=== PATIENT | female | born 1990 | race Caucasian/White ===

== ENCOUNTER 2017-11-22 20:50 | Emergency (ER) | payer MEDICAID ==
[~2017-11-22] VITALS: Ht 157.5 cm; Wt 40.4 kg
[2017-11-22 21:00] VITALS: BP 136/90
--- NOTE | 2017-11-22 21:05 | NUR ---
PATIENT AMBULATED TO ER BED 6.
--- NOTE | 2017-11-22 21:05 | NUR ---
PT C/O COUGH X5 DAYS. PT REPORTS PHLEGM PRODUCTION WITH BLOOD. DENIES N/V/D; SKIN IS PINK/WARM/DRY; AAOX4 WITH EVEN AND STEADY GAIT; LUNGS CLEAR BL; HR EVEN AND REGULAR; PT DENIES ANY FEVER, SOB, AT THIS TIME; PATIENT STATES PAIN OF 5/10 AT THIS TIME; VSS; PATIENT POSITIONED FOR COMFORT; HOB ELEVATED; BEDRAILS UP X2; BED DOWN. ER MD MADE AWARE OF PT STATUS.
[2017-11-22 21:50] VITALS: BP 115/72
--- NOTE | 2017-11-22 21:50 | NUR ---
Patient discharged with v/s stable. Written and verbal after care instructions given and explained. Patient alert, oriented and verbalized understanding of instructions. Ambulatory with steady gait. All questions addressed prior to discharge. ID band removed. Patient advised to follow up with PMD. Rx of PROMETHAZINE DM, ZITHROMAX given. Patient educated on indication of medication including possible reaction and side effects. Opportunity to ask questions provided and answered.
== END 2017-11-22 21:50 | disposition home or self-care (01) ==
LOC: MED 20:50
DX: J40 Bronchitis, not specified as acute or chronic (principal); Z90.49 Acquired absence of other specified parts of digestive tract
CPT/HCPCS: 71046; 99284

== ENCOUNTER 2018-06-03 11:37 | Emergency (ER) | payer MEDICAID ==
[~2018-06-03] VITALS: Ht 157.5 cm; Wt 44.0 kg
[2018-06-03 11:43] VITALS: BP 131/82
--- NOTE | 2018-06-03 11:48 | NUR ---
PATIENT AMBULATED TO BED 3.
--- NOTE | 2018-06-03 12:03 | NUR ---
28/F BIB FAMILY C/O BACK OF HEAD PAIN X EARLIER TODAY, DENIES N/V/D OR BLURRY VISION. PATIENT STATES PAIN OF 7/10 AT THIS TIME.PATIENT POSITIONED FOR COMFORT; HOB ELEVATED; BEDRAILS UP X1; BED DOWN. ER MD MADE AWARE OF PT STATUS.
[2018-06-03] MEDS ORDERED: KETOROLAC 60 MG/2 ML VIAL IM ONE (12:10)
--- NOTE | 2018-06-03 12:22 | NUR ---
IM MEDS GIVEN-NADR AT THIS TIME
[2018-06-03 12:31] VITALS: BP 110/60
--- NOTE | 2018-06-03 12:31 | NUR ---
Patient discharged with v/s stable. Written and verbal after care instructions given and explained. Patient alert, oriented and verbalized understanding of instructions. Ambulatory with steady gait. All questions addressed prior to discharge. ID band removed. Patient advised to follow up with PMD. Rx of BACLOFEN given. Patient educated on indication of medication including possible reaction and side effects. Opportunity to ask questions provided and answered.
== END 2018-06-03 12:31 | disposition home or self-care (01) ==
LOC: MED 11:37
DX: M43.6 Torticollis (principal); M62.838 Other muscle spasm
CPT/HCPCS: 81002; 81025; 96372; 99283; J1885

== ENCOUNTER 2019-02-14 11:21 | Emergency (ER) | payer MEDICAID ==
[~2019-02-14] VITALS: Ht 157.5 cm; Wt 44.6 kg
[2019-02-14 11:27] VITALS: BP 121/79
[2019-02-14 12:11] LABS: BASOPHILS % (AUTO) 0.3 % (0.0-2.0); EOSINOPHILS % (AUTO) 0.5 % (0.0-4.0); HEMATOCRIT 42.4 % (36-48); HEMOGLOBIN 14.1 g/dL (12.0-16.0); LYMPHOCYTES # (AUTO) 1.4 K/uL (2.5-16.5); MEAN CORPUSCULAR HEMOGLOBIN 28 pg (27-31); MEAN CORPUSCULAR HGB CONC 33 g/dL (33-37); MEAN CORPUSCULAR VOLUME 84.7 fL (80-94); MONOCYTES # (AUTO) 0.6 K/uL (0.8-1.0); MONOCYTES % (AUTO) 9.2 % (1.7-9.3); NEUTROPHILS # (AUTO) 4.6 K/uL (1.8-7.7); PLATELET COUNT (AUTO) 155 K/uL (140-450); WHITE BLOOD COUNT (AUTO) 6.7 K/uL (4.8-10.8)
[2019-02-14 12:22] LABS: ALBUMIN 3.8 g/dL (3.4-5.0); ANION GAP 12.3 (8-16); CARBON DIOXIDE 27.4 mmol/L (21-32); CREATININE 1.3 mg/dL (0.6-1.3); POTASSIUM 4.7 mmol/L (3.5-5.1); TOTAL BILIRUBIN 0.2 mg/dL (0.0-1.0)
--- NOTE | 2019-02-14 14:32 | NUR ---
PT TAKEN TO BED 7.
--- NOTE | 2019-02-14 14:51 | NUR ---
Dr. Parsons is evaluating the patient at bedside.
[2019-02-14] MEDS ORDERED: ONDANSETRON 4 MG/2 ML VIAL IVP ONE (14:55)
[2019-02-14] MEDS ORDERED: KETOROLAC 30 MG/ML VIAL IVP ONE (14:55)
[2019-02-14] MEDS: NACL 0.9% 1,000 ML IV SCH ×2 (15:16→15:45)
--- NOTE | 2019-02-14 15:22 | NUR ---
BIB SELF C/O UPPER ABD PAIN X 1 DAY, DIARRHEA, NAUSEA. LAST BM WAS AT 1100. RATES PAIN 10/19. REPORTS A SUDDEN ONSET OF SYMPTOMS YESTERDAY MORNING AND PAIN HAS NOT BEEN RELIEVED SINCE. NO SOB/ NO CHEST PAIN. BOWEL SOUNDS ACTIVE IN ALL QUADRANTS. ABD FLAT. NO PMH NKA
[2019-02-14 18:03] VITALS: BP 135/72
--- NOTE | 2019-02-14 18:05 | NUR ---
Patient discharged with v/s stable. Written and verbal after care instructions given and explained. Patient alert, oriented and verbalized understanding of instructions. Ambulatory with steady gait. All questions addressed prior to discharge. ID band removed. Patient advised to follow up with PMD. Rx of MOTRIN, ZOFRAN, IMMODIUM given. Patient educated on indication of medication including possible reaction and side effects. Opportunity to ask questions provided and answered.
[2019-02-14 19:57] LABS: APPEARANCE,URINE CLEAR (CLEAR); BILIRUBIN,URINE NEGATIVE (NEGATIVE); BLOOD, URINE 2+ (NEGATIVE); COLOR,URINE YELLOW (YELLOW); LEUKOCYTE ESTERASE ,URINE NEGATIVE (NEGATIVE); NITRITE, URINE NEGATIVE (NEGATIVE); PH,URINE 6.5 (5.0-9.0); UGLUCOSE NEGATIVE (NEGATIVE)
[2019-02-14 20:16] LABS: RBC,URINE 0-5 /HPF (0-5); WBC,URINE NONE SEEN /HPF (0-5)
--- NOTE | 2019-02-17 08:34 | NUR ---
Late entry. Confirmed with RN that 0.9 NS IV completed at 164
== END 2019-02-14 18:05 | disposition home or self-care (01) ==
LOC: MED 11:21
DX: R10.13 Epigastric pain (principal); R11.0 Nausea; R19.7 Diarrhea, unspecified; Z90.49 Acquired absence of other specified parts of digestive tract
CPT/HCPCS: 36415; 74177; 80053; 81001; 83690; 84703; 85025; 96374; 96375; 99284; J1885; J2405; Q9967; J7030

== ENCOUNTER 2022-02-11 01:30 | Emergency (ER) | payer MEDICAID ==
--- NOTE | 2022-02-11 01:43 | NUR ---
called for patient. no answer at this time.
--- NOTE | 2022-02-11 01:43 | NUR ---
Arina reyes in ED - 02/11/22 at 0207 by ERA PATIENT LEFT WITHOUT BEING SEEN BY DR. ANAYA. NO FURTHER CARE PROVIDED FOR PATIENT.
--- NOTE | 2022-02-11 02:06 | NUR ---
PATIENT LEFT WITHOUT BEING SEEN BY DR. ANAYA. NO FURTHER CARE PROVIDED FOR PATIENT.
--- NOTE | 2022-02-11 02:06 | NUR ---
called for pt and no answer
== END 2022-02-11 01:43 | disposition left against medical advice (07) ==
LOC: MED 01:30
DX: R10.9 Unspecified abdominal pain (principal); Z53.21 Procedure and treatment not carried out due to patient leaving prior to being seen by health care provider

== ENCOUNTER 2022-07-26 22:40 | Emergency (ER) | payer MEDICAID ==
[~2022-07-26] VITALS: Ht 157.5 cm; Wt 49.9 kg
[2022-07-26 22:55] VITALS: BP 114/80
--- NOTE | 2022-07-26 22:58 | NUR ---
TO LOBBY A/W BED AMBULATORY
--- NOTE | 2022-07-26 23:51 | NUR ---
PT TO BED #6
[2022-07-27] MEDS ORDERED: ONDANSETRON 4 MG/2 ML VIAL IVP ONE (00:05)
[2022-07-27] MEDS ORDERED: NACL 0.9% 1,000 ML IV ONE (00:05)
[2022-07-27] MEDS ORDERED: KETOROLAC 15 MG/ML VIAL IVP ONE (00:05)
[2022-07-27 00:21] LABS: APPEARANCE,URINE CLEAR (CLEAR); BILIRUBIN,URINE NEGATIVE (NEGATIVE); BLOOD, URINE NEGATIVE (NEGATIVE); COLOR,URINE YELLOW (YELLOW); LEUKOCYTE ESTERASE ,URINE NEGATIVE (NEGATIVE); NITRITE, URINE NEGATIVE (NEGATIVE); PH,URINE 6.5 (5.0-9.0); UGLUCOSE NEGATIVE (NEGATIVE)
[2022-07-27 00:24] LABS: BASOPHILS % (AUTO) 0.6 % (0.0-2.0); EOSINOPHILS # (AUTO) 0.1 K/uL (0-0.4); EOSINOPHILS % (AUTO) 1.7 % (0.0-4.0); HEMATOCRIT 39.7 % (36-48); HEMOGLOBIN 13.4 g/dL (12.0-16.0); LYMPHOCYTES # (AUTO) 2.8 K/uL (2.5-16.5); LYMPHOCYTES % (AUTO) 35.3 % (20.5-51.1); MEAN CORPUSCULAR HEMOGLOBIN 28 pg (27-31); MEAN CORPUSCULAR HGB CONC 34 g/dL (33-37); MEAN CORPUSCULAR VOLUME 82.6 fL (80-94); MONOCYTES # (AUTO) 0.5 K/uL (0.8-1.0); MONOCYTES % (AUTO) 6.9 % (1.7-9.3); NEUTROPHILS # (AUTO) 4.4 K/uL (1.8-7.7); NEUTROPHILS % (AUTO) 55.5 % (42.2-75.2); PLATELET COUNT (AUTO) 229 K/uL (140-450); RED BLOOD CELL COUNT(AUTO) 4.81 MIL/uL (4.20-5.40); RED CELL DISTRIBUTION WIDTH 12.8 % (11.6-13.7); WHITE BLOOD COUNT (AUTO) 7.9 K/uL (4.8-10.8)
[2022-07-27 00:41] LABS: ALBUMIN 3.9 g/dL (3.4-5.0); ANION GAP 10.3 (8-16); CARBON DIOXIDE 31.8 mmol/L (21-32); CREATININE 0.8 mg/dL (0.6-1.3); POTASSIUM 4.1 mmol/L (3.5-5.1); TOTAL BILIRUBIN 0.2 mg/dL (0.0-1.0)
[2022-07-27] MEDS ORDERED: MAG-27 PO (01:25)
[2022-07-27] MEDS ORDERED: ONDA-188 PO (01:25)
[2022-07-27 01:33] VITALS: BP 114/80
--- NOTE | 2022-07-27 01:33 | NUR ---
Patient discharged with v/s stable. Written and verbal after care instructions given and explained. Patient alert, oriented and verbalized understanding of instructions. Ambulatory with steady gait. All questions addressed prior to discharge. ID band removed. Patient advised to follow up with PMD. Rx of JEREMY FLYNN given. Patient educated on indication of medication including possible reaction and side effects. Opportunity to ask questions provided and answered.
== END 2022-07-27 01:33 | disposition home or self-care (01) ==
LOC: MED 22:40
DX: R10.13 Epigastric pain (principal); R11.2 Nausea with vomiting, unspecified; R42 Dizziness and giddiness; Z72.89 Other problems related to lifestyle; Z90.49 Acquired absence of other specified parts of digestive tract
CPT/HCPCS: 36415; 80053; 81003; 81025; 83690; 85025; 96361; 96374; 96375; 99284; J7030

== ENCOUNTER 2022-12-12 09:49 | Emergency (ER) | payer MEDICAID ==
[~2022-12-12] VITALS: Ht 162.6 cm; Wt 63.5 kg
[~2022-12-12 09:49] MED LIST: HYD1C TP; MAG-27 PO; NAPR-54 PO; ONDA-188 PO
[2022-12-12 10:06] VITALS: BP 124/85; PULSE 87; RESP 18; TEMP 98.6; O2SAT 98
[2022-12-12 12:06] LABS: FLU A ANTIGEN negative (NEGATIVE); FLU B ANTIGEN NEGATIVE (NEGATIVE)
[2022-12-12] MEDS ORDERED: BENZ200C4 PO (12:30)
[2022-12-12] MEDS ORDERED: ALBU0.0912 IH (12:30)
== END 2022-12-12 13:06 | disposition home or self-care (01) ==
LOC: MED 09:49
DX: J20.9 Acute bronchitis, unspecified (principal); Z20.822 Contact with and (suspected) exposure to COVID-19; Z79.899 Other long term (current) drug therapy
CPT/HCPCS: 71045; 99284

== ENCOUNTER 2022-12-13 20:20 | Emergency (ER) | payer MEDICAID ==
[~2022-12-13] VITALS: Ht 157.5 cm; Wt 54.4 kg
[~2022-12-13 20:20] MED LIST changes: +ALBU0.0912 IH; +BENZ200C4 PO
[2022-12-13 20:25] VITALS: BP 140/80; PULSE 122; RESP 22; TEMP 100.9; O2SAT 95
[2022-12-13] MEDS ORDERED: ACETAMINOPHEN 325 MG TAB PO ONE (20:40)
[2022-12-13 20:50] VITALS: O2SAT 98
[2022-12-13] MEDS ORDERED: NACL 0.9% 1,000 ML IV ONE ×2 (21:00)
[2022-12-13 21:27] LABS: BASOPHILS % (AUTO) 0.3 % (0.0-2.0); EOSINOPHILS % (AUTO) 0.3 % (0.0-4.0); HEMATOCRIT 40.7 % (36-48); HEMOGLOBIN 13.9 g/dL (12.0-16.0); LYMPHOCYTES # (AUTO) 0.9 K/uL (2.5-16.5); LYMPHOCYTES % (AUTO) 16.8 % (20.5-51.1); MEAN CORPUSCULAR HEMOGLOBIN 28 pg (27-31); MEAN CORPUSCULAR HGB CONC 34 g/dL (33-37); MEAN CORPUSCULAR VOLUME 81.7 fL (80-94); MONOCYTES # (AUTO) 0.3 K/uL (0.8-1.0); MONOCYTES % (AUTO) 5.6 % (1.7-9.3); NEUTROPHILS # (AUTO) 4.1 K/uL (1.8-7.7); PLATELET COUNT (AUTO) 165 K/uL (140-450); RED BLOOD CELL COUNT(AUTO) 4.99 MIL/uL (4.20-5.40); RED CELL DISTRIBUTION WIDTH 13.2 % (11.6-13.7); WHITE BLOOD COUNT (AUTO) 5.3 K/uL (4.8-10.8)
[2022-12-13 21:38] LABS: ALBUMIN 3.9 g/dL (3.4-5.0); ANION GAP 13.2 (8-16); CALCIUM 8.6 mg/dL (8.5-10.1); CARBON DIOXIDE 25.5 mmol/L (21-32); CREATININE 0.9 mg/dL (0.6-1.3); POTASSIUM 3.7 mmol/L (3.5-5.1); TOTAL BILIRUBIN 0.3 mg/dL (0.0-1.0); TOTAL PROTEIN, SERUM 7.9 g/dL (6.4-8.2)
[2022-12-13 21:43] LABS: LACTIC ACID 1.9 mmol/L (0.4-2.0)
[2022-12-13 22:22] LABS: APPEARANCE,URINE CLEAR (CLEAR); BILIRUBIN,URINE NEGATIVE (NEGATIVE); BLOOD, URINE 1+ (NEGATIVE); COLOR,URINE YELLOW (YELLOW); LEUKOCYTE ESTERASE ,URINE NEGATIVE (NEGATIVE); NITRITE, URINE NEGATIVE (NEGATIVE); PROTEIN,URINE NEGATIVE (NEGATIVE); UGLUCOSE NEGATIVE (NEGATIVE); UROBILINOGEN,URINE 0.2 EU/dL (0.2 - 1)
[2022-12-13 22:34] LABS: BACTERIA,URINE FEW /HPF (None Seen); MUCUS,URINE 1+ /LPF (None Seen); RBC,URINE 0-5 /HPF (0-5); SQUAMOUS EPITHELIAL CELL,UR 0-3 (FEW) /LPF (0-3 (FEW)); TRICHOMONAS,URINE None Seen /HPF (None Seen); WBC,URINE 0-5 /HPF (0-5); YEAST,URINE None Seen /HPF (None Seen)
[2022-12-13] MEDS ORDERED: cefTRIAXone 1,000 MG VIAL ONE (23:27)
[2022-12-14 00:12] VITALS: O2SAT 98
[2022-12-14] MEDS ORDERED: guaiFENesin DM 200/20 MG-10 ML 10 ML UDC PO ONE (02:45)
[2022-12-14 03:03] VITALS: O2SAT 99
[2022-12-14 05:02] VITALS: O2SAT 99
[2022-12-14] MEDS ORDERED: AZIT250T4 PO (05:49)
[2022-12-14] MEDS ORDERED: ROB PO (05:49)
[2022-12-14] MEDS ORDERED: ACET-2619 PO (05:49)
[2022-12-14 06:04] VITALS: BP 109/72; PULSE 99; RESP 14; TEMP 98.9; O2SAT 100
== END 2022-12-14 06:04 | disposition home or self-care (01) ==
LOC: MED 20:20
DX: A41.9 Sepsis, unspecified organism (principal); Z79.899 Other long term (current) drug therapy
CPT/HCPCS: 36415; 71045; 71275; 80053; 81001; 83605; 84484; 85025; 85379; 87040; 87086; 93005; 96361; 96365; 99291; J0696; Q9967

== ENCOUNTER 2023-06-10 09:17 | Emergency (ER) | payer SELFPAY ==
[~2023-06-10] VITALS: Ht 157.5 cm; Wt 55.8 kg
[~2023-06-10 09:17] MED LIST changes: +ACET-2619 PO; +AZIT250T4 PO; +NAPR-337 PO; -NAPR-54 PO; +ROB PO
[2023-06-10 09:19] VITALS: BP 122/79; PULSE 74; RESP 16; TEMP 97.7; O2SAT 98
[2023-06-10 10:06] LABS: BASOPHILS # (AUTO) 0.1 K/uL (0.00-0.22); BASOPHILS % (AUTO) 0.7 % (0.0-2.0); EOSINOPHILS # (AUTO) 0.2 K/uL (0-0.4); EOSINOPHILS % (AUTO) 2.3 % (0.0-4.0); HEMATOCRIT 41.7 % (36-48); HEMOGLOBIN 14.3 g/dL (12.0-16.0); LYMPHOCYTES # (AUTO) 2.6 K/uL (2.5-16.5); LYMPHOCYTES % (AUTO) 33.9 % (20.5-51.1); MEAN CORPUSCULAR HEMOGLOBIN 28 pg (27-31); MEAN CORPUSCULAR HGB CONC 34 g/dL (33-37); MEAN CORPUSCULAR VOLUME 82.5 fL (80-94); MONOCYTES # (AUTO) 0.5 K/uL (0.8-1.0); NEUTROPHILS # (AUTO) 4.3 K/uL (1.8-7.7); NEUTROPHILS % (AUTO) 57.1 % (42.2-75.2); PLATELET COUNT (AUTO) 209 K/uL (140-450); RED BLOOD CELL COUNT(AUTO) 5.05 MIL/uL (4.20-5.40); RED CELL DISTRIBUTION WIDTH 13.5 % (11.6-13.7); WHITE BLOOD COUNT (AUTO) 7.6 K/uL (4.8-10.8)
[2023-06-10] MEDS: KETOROLAC 30 MG/ML VIAL IM ONE (10:07)
[2023-06-10 10:17] LABS: ANION GAP 12.6 (8-16); CARBON DIOXIDE 27.1 mmol/L (21-32); CREATININE 0.7 mg/dL (0.6-1.3); POTASSIUM 3.7 mmol/L (3.5-5.1)
[2023-06-10] MEDS ORDERED: NAPR-1704 PO (11:53)
[2023-06-10 12:09] VITALS: BP 123/77; PULSE 83; RESP 16; O2SAT 99
== END 2023-06-10 12:09 | disposition home or self-care (01) ==
LOC: MED 09:17
DX: R10.32 Left lower quadrant pain (principal); R11.0 Nausea; Z79.899 Other long term (current) drug therapy; Z90.49 Acquired absence of other specified parts of digestive tract
CPT/HCPCS: 36415; 76856; 80048; 81002; 81025; 85025; 96372; 99285; J1885; Q0092

== ENCOUNTER 2023-06-11 19:16 | Emergency (ER) | payer MEDICAID, OTHER ==
[~2023-06-11] VITALS: Ht 157.5 cm; Wt 59.9 kg
[~2023-06-11 19:16] MED LIST changes: +NAPR-1704 PO
[2023-06-11 19:42] VITALS: BP 122/76; PULSE 80; RESP 19; TEMP 98.3; O2SAT 100
[2023-06-11] MEDS: KETOROLAC 30 MG/ML VIAL IVP ONE (20:23)
[2023-06-11 22:32] VITALS: BP 114/76; PULSE 76; RESP 16; TEMP 98; O2SAT 100
== END 2023-06-11 22:23 | disposition home or self-care (01) ==
LOC: MED 19:16
DX: K63.89 Other specified diseases of intestine (principal); Z90.49 Acquired absence of other specified parts of digestive tract; Z98.51 Tubal ligation status; Z98.890 Other specified postprocedural states; Z79.899 Other long term (current) drug therapy
CPT/HCPCS: 74177; 96374; 99285; J1885; Q9967